=== PATIENT | female | born 1990 | race Hispanic/Latino ===

== ENCOUNTER 2016-07-15 02:44 | Inpatient (IN) ==
[2016-07-15 03:21] LABS: URINE SOURCE VOIDED
[2016-07-15 03:37] LABS: UR AMPHETAMINES QUAL NONE DETECTED (NONE DETECT); UR BARBITUATES QUAL NONE DETECTED (NONE DETECT); UR BENZODIAZEPIN QUAL NONE DETECTED (NONE DETECT); UR CANNABINOIDS QUAL NONE DETECTED (NONE DETECT); UR COCAINE QUAL NONE DETECTED (NONE DETECT); UR MDMA QUAL NONE DETECTED (NONE DETECT); UR METHADONE QUAL NONE DETECTED (NONE DETECT); UR METHAMPHETAMINE QUAL NONE DETECTED (NONE DETECT); UR OPIATES QUAL NONE DETECTED (NONE DETECT); UR OXYCODONE QUAL NONE DETECTED (NONE DETECT); UR PCP QUAL NONE DETECTED (NONE DETECT); UR TCA QUAL NONE DETECTED (NONE DETECT)
[2016-07-15 03:38] LABS: BILIRUBIN URINE NEGATIVE (NEGATIVE); BLOOD URINE TRACE (NEGATIVE); CLARITY SL. CLOUDY (CLEAR); COLOR YELLOW; GLUCOSE URINE NEGATIVE (NEGATIVE); LEUKOCYTES URINE TRACE (NEGATIVE); NITRITE URINE NEGATIVE (NEGATIVE); PH URINE 6.5; PROTEIN URINE TRACE mg/dL (NEGATIVE); SP GRAVITY URINE 1.015; UROBILINOGEN URINE NORMAL
[2016-07-15] MEDS ORDERED: STADOL IV PRN (04:10)
[2016-07-15] MEDS ORDERED: LR 1,000 ML IV SCH ×2 (04:15→05:45)
[2016-07-15] MEDS ORDERED: AMPICILLIN 2 GM/NS 100 ML IV ONE (04:42)
[2016-07-15] MEDS ORDERED: TYLENOL PO PRN (05:39)
[2016-07-15] MEDS ORDERED: PEPCID IV PRN (05:39)
[2016-07-15] MEDS ORDERED: PEPCID PO PRN (05:39)
[2016-07-15] MEDS ORDERED: REGLAN PO ONE (05:39)
[2016-07-15] MEDS ORDERED: ZOFRAN IV PRN (05:39)
[2016-07-15] MEDS ORDERED: PITOCIN 30 UNITS/LR 500 ML IV SCH (05:45)
[2016-07-15] MEDS ORDERED: SODIUM CHLORIDE 0.9% INJ SCH (05:45)
[2016-07-15] MEDS ORDERED: XYLOCAINE-MPF 1% 5 ML ONE (05:49)
[2016-07-15 05:50] LABS: MANUAL DIFF NEEDED? NO
[2016-07-15] MEDS ORDERED: FENTANYL-BUPIV-NS 2 MCG-0.1% 200 ML ONE (05:50)
[2016-07-15 05:52] LABS: BASO% 0.3 % (0.0-0.8); EOS# 0.03 X1000 (0.0-0.7); EOS% 0.4 % (0.0-10.0); HEMOGLOBIN 9.9 g/dL (12.0-16.0); IMM GRAN# 0.03 X1000 (0.0-0.04); IMM GRAN% 0.4 % (0.0-0.5); LYMPH# 1.56 X1000 (1.2-3.4); LYMPH% 20.6 % (20.5-51.1); MCH 24.1 PG (27-31); MCHC 30.9 g/dL (33-37); MCV 77.9 FL (81-99); MONO# 0.35 X1000 (0.11-0.59); MONO% 4.6 % (1.7-9.3); MPV 12.5 FL (7.4-10.4); NEUT% 73.7 % (42.2-75.2); PLT 213 X1000 (130-400); RBC 4.11 XMIL (4.2-5.4)
[2016-07-15] MEDS ORDERED: XYLOCAINE-MPF 1% ONE (06:15)
[2016-07-15] MEDS ORDERED: MINERAL OIL ONE (06:16)
[2016-07-15] MEDS ORDERED: AMPICILLIN 1 GM/NS 50 ML IV SCH ×2 (08:42→08:45)
[2016-07-15] MEDS ORDERED: HYDROXYZINE IM PRN (10:11)
[2016-07-15] MEDS ORDERED: CYTOTEC PO PRN (10:11)
[2016-07-15] MEDS ORDERED: AMBIEN PO PRN (10:11)
[2016-07-15] MEDS ORDERED: XYLOCAINE-MPF 1% INJ PRN (10:11)
[2016-07-15] MEDS ORDERED: BENADRYL IV PRN (10:11)
[2016-07-15] MEDS ORDERED: M-M-R II VACCINE SUBQ ONE (10:11)
[2016-07-15] MEDS ORDERED: PITOCIN IM PRN (10:11)
[2016-07-15] MEDS ORDERED: BOOSTRIX VACCINE IM ONE (10:11)
[2016-07-15] MEDS ORDERED: PITOCIN 20 UNITS/LR 1,000 ML IV SCH (10:11)
[2016-07-15] MEDS ORDERED: HYDROXYZINE PO PRN (10:11)
[2016-07-15] MEDS ORDERED: MINERAL OIL MISC PRN (10:11)
[2016-07-15] MEDS ORDERED: NORCO-10 PO PRN (10:11)
[2016-07-15] MEDS ORDERED: BENADRYL PO PRN (10:11)
[2016-07-15] MEDS ORDERED: PERI MEDS (DERMOPLAST/NUPERCAINAL/TUCKS) MISC PRN (10:11)
[2016-07-15] MEDS ORDERED: PITOCIN 30 UNITS/LR 500 ML IV ONE (10:11)
--- NOTE | 2016-07-15 10:24 | HISTORY AND PHYSICAL ---
INDICATION: Term , no care. CONDITION: Stable. HISTORY OF PRESENT ILLNESS: Ms. Fountain is a 26-year-old, 3, para 2, who has had no care, except for maybe 1 visit in [place]. She presents in active labor. Denies rupture of membranes, vaginal bleeding, states good movement. She has had 2 past vaginal deliveries. She has a history of O-positive blood type. Her previous delivery 2014. Her GBS was negative. She did not have any abnormal labs. We do not have those labs at this point. She states she has not been taking any medication. She is not allergic to anything. She denies tobacco, alcohol, or drug use. PHYSICAL EXAMINATION: VITAL SIGNS: Stable. She is afebrile. GENERAL: She is in moderate distress with contractions. NECK: Supple. LUNGS: Clear. HEART: Regular sinus rhythm. ABDOMEN: Gravid. PELVIC EXAM: She is 9 cm, vertex. Artificial rupture clear fluid. PLAN: Expect vaginal delivery.
--- NOTE | 2016-07-15 10:25 | OPERATIVE NOTE ---
PROCEDURE DATE: 07/15/2016 PREDELIVERY DIAGNOSES: 1. Term . 2. No care. 3. Active labor. POSTDELIVERY DIAGNOSES: 1. Term , delivered. 2. Nuchal cord x1. PROCEDURE PERFORMED: Vaginal delivery. PHYSICIAN: Rohan Barros MD ANESTHESIA: Epidural, done by Dr. Hodge. COUNTS: Correct. ESTIMATED BLOOD LOSS: 100 mL. FINDINGS: Viable female . I do not have weight or scores. There was a nuchal cord x1. A 3-vessel cord. Placenta was spontaneous and intact. No lacerations or tears. DELIVERY SUMMARY: Ms. Fountain is a 26-year-old, 3, para 2, who presented in active labor and quickly reached 9 cm. After epidural anesthesia, she was artificially ruptured, soon became complete, and began pushing. Soon after, she crowned, at which point the bed was broken down and she was prepped and draped. With continued pushing, she delivered a viable female , occipitoanterior, over an intact perineum. Once the head delivered, the nuchal cord x1 was reduced, and the shoulders and the rest of the body delivered without difficulty. The was placed on the mother's abdomen. The cord was doubly clamped and cut. Care of the was taken over by nursery personnel. Cord blood was obtained and the cord was inspected and found to have 3 vessels. Then, gentle traction on the cord resulted in delivery of the placenta after approximately 2 minutes. It was inspected and found to be intact. At this point, a vaginal sweep was done. There were no clots or foreign material. The perineum was inspected with no lacerations or tears. Estimated blood loss was 100 mL. Expect routine . Again, all counts correct.
[2016-07-15] MEDS: NORCO-5 PO PRN ×2 (14:52→21:48)
[2016-07-15] MEDS: MOTRIN PO PRN ×2 (14:53→21:48)
[2016-07-15] MEDS: PERICOLACE PO SCH (20:42)
[2016-07-16 06:09] LABS: MANUAL DIFF NEEDED? NO
[2016-07-16 06:28] LABS: BASO% 0.2 % (0.0-0.8); EOS# 0.08 X1000 (0.0-0.7); EOS% 0.8 % (0.0-10.0); HEMATOCRIT 26.7 % (37.0-47.0); IMM GRAN# 0.05 X1000 (0.0-0.04); IMM GRAN% 0.5 % (0.0-0.5); LYMPH# 3.15 X1000 (1.2-3.4); LYMPH% 30.6 % (20.5-51.1); MCV 79.9 FL (81-99); MONO# 0.65 X1000 (0.11-0.59); MONO% 6.3 % (1.7-9.3); MPV 12.4 FL (7.4-10.4); NEUT% 61.6 % (42.2-75.2); PLT 208 X1000 (130-400); RBC 3.34 XMIL (4.2-5.4)
[2016-07-16] MEDS: PRECARE PO SCH (08:48)
[2016-07-16] MEDS: PERICOLACE PO SCH (19:42)
[2016-07-16] MEDS: MOTRIN PO PRN (19:42)
[2016-07-16] MEDS: NORCO-5 PO PRN (19:42)
[2016-07-17 08:29] VITALS: BP 111/72
[2016-07-17] MEDS: MOTRIN PO PRN (08:34)
[2016-07-17] MEDS: PRECARE PO SCH (08:35)
[2016-07-17] MEDS ORDERED: FLUZONE QUAD 2016-2017 SYRINGE IM ONE (09:00)
== END 2016-07-17 09:35 | disposition home or self-care (01) | DRG 775 ==
LOC: P.OPLD 02:44 → P.LD 02:46 → P.OPLD 05:33 → P.LD 05:34 → P.WC 12:29
PROVIDERS: ADMIT Obstetrics & Gynecology; ATTEND Obstetrics & Gynecology
PROC: 10E0XZZ Delivery of Products of Conception, External Approach (ICD-10-PCS; principal; 2016-07-15)
PROC: 10907ZC Drainage of Amniotic Fluid, Therapeutic from Products of Conception, Via Natural or Artificial Opening (ICD-10-PCS; 2016-07-15)
DX: O69.1XX0 Labor and delivery complicated by cord around neck, with compression, not applicable or unspecified (principal); Z37.0 Single live birth; Z3A.39 39 weeks gestation of pregnancy
CPT/HCPCS: 59025; 80305; 81003; 85025; 86592; J0290; J0595; J2590; J7120